=== PATIENT | male | born 1970 | race American Indian/Alaskan Native ===

== ENCOUNTER 2021-06-24 21:00 | Emergency (ER) | payer BC ==
[2021-06-24 21:46] VITALS: BP 131/90
[2021-06-25] MEDS ORDERED: LORazepam 1 MG TAB PO ONE (01:31)
--- NOTE | 2021-06-25 01:50 | Emergency Department Report ---
ED General Adult HPI - General Chief complaint: Chest Pain Stated complaint: CHEST/NECK/BACK PAIN Time Seen by Provider: 06/25/21 00:34 Source: patient Mode of arrival: Ambulatory Limitations: No Limitations - Related Data Previous Rx's Medication Instructions Recorded Last Taken Type Ketorolac [Toradol] 10 mg PO Q6H PRN #10 tablet 06/25/21 Unknown Rx methOCARBAMOL [Robaxin TAB] 750 mg PO Q8H #20 tablet 06/25/21 Unknown Rx Allergies Allergy/AdvReac Type Severity Reaction Status Date / Time No Known Allergies Allergy Verified 06/24/21 21:46 ED Review of Systems ROS: Stated complaint: CHEST/NECK/BACK PAIN Other details as noted in HPI Comment: All other systems reviewed and negative ED Past Medical Hx - Past Medical History Previous Medical History?: No - Surgical History Past Surgical History?: No - Medications Home Medications: Home Medications Medication Instructions Recorded Confirmed Last Taken Type Ketorolac [Toradol] 10 mg PO Q6H PRN #10 tablet 06/25/21 Unknown Rx methOCARBAMOL [Robaxin TAB] 750 mg PO Q8H #20 tablet 06/25/21 Unknown Rx ED Physical Exam - General Limitations: No Limitations General appearance: alert, in no apparent distress - Head Head exam: Present: atraumatic, normocephalic - Eye Eye exam: Present: normal appearance, PERRL, EOMI Pupils: Present: normal accommodation - ENT ENT exam: Present: normal exam, normal orophraynx, mucous membranes moist - Neck Neck exam: Present: normal inspection, full ROM. Absent: tenderness - Respiratory Respiratory exam: Present: normal lung sounds bilaterally. Absent: respiratory distress, wheezes - Cardiovascular Cardiovascular Exam: Present: regular rate, normal rhythm. Absent: bradycardia, tachycardia, systolic murmur, diastolic murmur, rubs, gallop - GI/Abdominal GI/Abdominal exam: Present: soft, normal bowel sounds. Absent: tenderness, guarding, hyperactive bowel sounds, hypoactive bowel sounds - Rectal Rectal exam: Present: deferred - Extremities Exam Extremities exam: Present: normal inspection - Back Exam Back exam: Present: normal inspection - Neurological Exam Neurological exam: Present: alert, oriented X3 - Psychiatric Psychiatric exam: Present: normal affect, normal mood - Skin Skin exam: Present: warm, dry, intact, normal color. Absent: rash ED Course Vital Signs 06/24/21 21:40 Temperature 98.8 F Pulse Rate 74 Respiratory 14 Rate Blood Pressure 131/90 [Left] O2 Sat by Pulse 100 Oximetry Critical care attestation.: If time is entered above; I have spent that time in minutes in the direct care of this critically ill patient, excluding procedure time. ED Disposition Disposition: HOME / SELF CARE / HOMELESS Condition: Stable Instructions: Heel Spur, How to Use Cold Therapy, Acute Torticollis, Adult, Foot Pain Prescriptions: methOCARBAMOL [Robaxin TAB] 750 mg PO Q8H #20 tablet Ketorolac [Toradol] 10 mg PO Q6H PRN #10 tablet PRN Reason: Pain Referrals: [facility] [Provider Group] - 3-5 Days PRIMARY CARE, [Primary Care Provider] - 3-5 Days
--- NOTE | 2021-06-25 17:38 | Electrocardiograph Report ---
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
== END 2021-06-25 01:57 | disposition home or self-care (01) ==
LOC: ED 21:00
DX: R07.9 Chest pain, unspecified (principal); M54.2 Cervicalgia; M54.9 Dorsalgia, unspecified
CPT/HCPCS: 93005; 99282